=== PATIENT | male | born 1955 | race Hispanic/Latino ===

== ENCOUNTER 2023-03-17 10:12 | Day surgery (SDC) | payer OTHER ==
[2023-03-15 13:20] VITALS: BP 145/69
[~2023-03-17] VITALS: Ht 177.8 cm; Wt 141.1 kg
[~2023-03-17 10:12] MED LIST: FISH1CAP27 PO; LOSA100T59 PO; OMEP20CA12 PO; VALS320T16 PO
[2023-03-17] MEDS ORDERED: PROPOFOL 10 MG/ML 20ML VIAL IV ONE (12:50)
[2023-03-17] MEDS ORDERED: LIDOCAINE PF 100MG/5ML (2%) SYRINGE 5ML ONE (12:50)
== END 2023-03-17 14:10 | disposition home or self-care (01) ==
LOC: DAH 10:12 → ENDO 10:12
PROVIDERS: ATTEND Internal Medicine
DX: Z12.11 Encounter for screening for malignant neoplasm of colon (principal); Z20.822 Contact with and (suspected) exposure to COVID-19; K21.9 Gastro-esophageal reflux disease without esophagitis; K63.5 Polyp of colon; K44.9 Diaphragmatic hernia without obstruction or gangrene; K29.70 Gastritis, unspecified, without bleeding; K62.89 Other specified diseases of anus and rectum; K59.04 Chronic idiopathic constipation; E11.22 Type 2 diabetes mellitus with diabetic chronic kidney disease; I12.9 Hypertensive chronic kidney disease with stage 1 through stage 4 chronic kidney disease, or unspecified chronic kidney disease; N18.9 Chronic kidney disease, unspecified; E66.01 Morbid (severe) obesity due to excess calories; Z79.01 Long term (current) use of anticoagulants; Z79.899 Other long term (current) drug therapy; Z87.891 Personal history of nicotine dependence; Z68.41 Body mass index [BMI] 40.0-44.9, adult
CPT/HCPCS: 87426; 82948; 43239; 45385; J2001; J2704; A4620; A4215 ×2; A4223; A4657 ×2; A7002; A4222; A4221; A4663; J7030; A4606